=== PATIENT | male | born 1960 | race Caucasian/White ===

== ENCOUNTER 2023-04-06 03:50 | Day surgery (SDC) | payer OTHER ==
[2023-03-29 14:23] VITALS: BMI 29.8
[2023-04-06 12:25] VITALS: RESP 16
[2023-04-06] MEDS ORDERED: LIDOCAINE HCL/PF 2% SDV 5ML VIAL ONE (14:46)
[2023-04-06] MEDS ORDERED: MIDAZOLAM HCL 2 MG/2 ML SINGLE DOSE VIAL ONE (14:46)
[2023-04-06] MEDS ORDERED: PROPOFOL 20 ML ONE ×2 (14:46→15:30)
[2023-04-06 16:22] VITALS: BP 127/62; PULSE 73; TEMP 97.4
== END 2023-04-06 16:55 | disposition home or self-care (01) ==
LOC: JASU-SURG 03:50
PROVIDERS: ATTEND Urology
PROC: 0TF3XZZ Fragmentation in Right Kidney Pelvis, External Approach (ICD-10-PCS; principal; 2023-04-06 14:00)
DX: N20.0 Calculus of kidney (principal)
CPT/HCPCS: 82962